=== PATIENT | male | born 1975 | race Caucasian/White ===

== ENCOUNTER 2017-10-29 13:27 | Emergency (ER) | payer OTHER ==
[~2017-10-29] VITALS: Ht 188 cm; Wt 131.5 kg
== END 2017-10-29 22:16 | disposition home or self-care (01) ==
LOC: ER 13:27
DX: J03.80 Acute tonsillitis due to other specified organisms (principal); B96.89 Other specified bacterial agents as the cause of diseases classified elsewhere; H66.91 Otitis media, unspecified, right ear